=== PATIENT | female | born 1955 | race Caucasian/White ===

== ENCOUNTER → 2024-01-02 10:47 | Outpatient (CLI) | payer MEDICARE, SELFPAY ==
[2024-01-02 12:39] LABS: BUN Creatinine Ratio 18.1 (6-22); Blood Urea Nitrogen 17 mg/dL (7-17); Calcium 8.6 mg/dL (8.4-10.2); Carbon Dioxide 31 mmol/L (22-32); Chloride 103 mmol/L (98-107); Cholesterol 185 mg/dL (140-199); Estimated Glomerular Filt Rate > 60 mL/min (>60); Glucose 86 mg/dL (80-110); HDL Cholesterol 90 mg/dL (40-60); LDL Cholesterol Calculated 71 mg/dL (<100); Potassium 4.2 mmol/L (3.4-5.1); Sodium 137 mmol/L (137-145); Triglycerides 119 mg/dL (35-150)
[2024-01-02 12:53] LABS: HEMOLYSIS 52 (0-50)
== END ==
PROVIDERS: PCP Family Medicine; Referring Provider Family Medicine; Visit Provider Family Medicine
DX: R74.8 Abnormal levels of other serum enzymes (principal)
CPT/HCPCS: 36415; 80048; 80061

== ENCOUNTER → 2024-01-03 12:51 | Outpatient (CLI) | payer MEDICARE, SELFPAY ==
--- NOTE | 2024-01-03 12:53 | DI.RAD.S_ITS ---
Bone Density Report Name: TY MARTI Age: 68 Sex: Female Ethnicity: White Date of : 1955 Indication: postmenopausal; screening for osteoporosis; Referring Provider: HELLEN MCNULTY Study: Bone densitometry was performed. Exam Date: January 03, 2024 Accession number: [id number] Bone Density: Region BMD T-score Z-score Classification AP Spine(L1-L4) 0.815 -2.1 0.0 Osteopenia Femoral Neck (Left) 0.553 -2.7 -0.9 Osteoporosis Total Hip (Left) 0.639 -2.5 -1.0 Osteoporosis Femoral Neck (Right) 0.599 -2.3 -0.5 Osteopenia Total Hip (Right) 0.659 -2.3 -0.8 Osteopenia Total Hip Mean 0.649 -2.4 -0.9 Osteopenia World Health Organization criteria for BMD impression classify patients as: Normal (T-score at or above -1.0), Osteopenia (T-score between -1.0 and -2.5), or Osteoporosis (T-score at or below -2.5). 10-year Fracture Risk: FRAX not reported because: Some T-score for Spine Total or Hip Total or Femoral Neck at or below -2.5 Impression: The patient has osteoporosis, based on the Left Femoral Neck T-score. Discussion: INCREASED RISK OF FRACTURE. BONE DENSITY IS UNDESIRABLY LOW AT ONE OR MORE SKELETAL SITES, CONSISTENT WITH POSTMENOPAUSAL OSTEOPOROSIS. This patient's lowest T-score meets the World Health Organization's (WHO) criteria for osteoporosis at one or more sites (T-score -2.5 or below). In untreated patients, the risk of osteoporotic fracture increases approximately two-fold for each 1.0 SD decrease in T-score. Low bone density is not the only risk factor for fracture; also consider factors such as patient's age, frailty or poor health, risk of falling, risk of injury, previous osteoporotic fracture, family history of osteoporosis, cigarette smoking, low body weight, etc. Not everyone with low bone mineral density has osteoporosis; osteomalacia and other metabolic bone disorders should also be considered. Patients who have osteoporosis should be evaluated for specific diseases and conditions (secondary causes) that may cause or contribute to bone loss. The [place] [employer]ocrinologists (AACE) and National Osteoporosis Foundation (NOF) recommend pharmacologic intervention for all postmenopausal women whose T-score is in this range. The patient should follow a healthful lifestyle (good nutrition with adequate calcium and vitamin D, and appropriate weight-bearing exercise). Follow-Up: Consider a repeat BMD and Vertebral Fracture Assessment (VFA) exam in 2 years or sooner if medically necessary, to reassess this patient's status. Reported by: CARMEN SEALS M.D. on 01/03/2024 1:22:00 PM.
== END ==
LOC: RAD 12:52
PROVIDERS: PCP Family Medicine; Referring Provider Family Medicine; Visit Provider Family Medicine
DX: M81.0 Age-related osteoporosis without current pathological fracture (principal)
CPT/HCPCS: 77080

== ENCOUNTER → 2024-01-04 12:59 | Outpatient (CLI) | payer MEDICARE, SELFPAY ==
--- NOTE | 2024-01-04 13:00 | DI.MG.S_ITS ---
BILATERAL DIGITAL SCREENING MAMMOGRAM 3D/2D WITH CAD: 01/04/2024 No prior exams were available for comparison. Both breasts are heterogeneously dense, which may obscure small masses (category c / 51-75% glandular tissue). Current study was also evaluated with a Computer Aided Detection (CAD) system. There are benign vascular calcifications in both breasts. No significant masses, calcifications, or other findings are seen in either breast. IMPRESSION: BENIGN There is no mammographic evidence of malignancy. A 1 year screening mammogram is recommended. Based on the Tyrer Cuzick model (a risk assessment model) the patient's lifetime risk is 8.6% and her 10 year risk is 5.5%. According to the ACR, ACS, and NCCN guidelines, an annual breast MRI exam along with mammogram is recommended if the patient's lifetime risk is 20% or greater. This exam was interpreted at Station ID: [id number]. NOTE: For mammograms, a report in lay terms will be sent to the patient. Approximately 15% of breast malignancies will not be visualized mammographically. In the management of a palpable breast mass, a negative mammogram must not discourage biopsy of a clinically suspicious lesion. Electronically Signed By: Cecy yee/bonita:01/13/2024 15:14:59 letter sent: Normal Exam ACR BI-RADS Category 2: Benign Finding(s) 3342F
== END ==
PROVIDERS: PCP Family Medicine; Referring Provider Family Medicine; Visit Provider Family Medicine
DX: Z12.31 Encounter for screening mammogram for malignant neoplasm of breast (principal); R92.333 Mammographic heterogeneous density, bilateral breasts
CPT/HCPCS: 77063; 77067

== ENCOUNTER 2024-06-30 08:01 | Day surgery (SDC) | payer MEDICARE, SELFPAY ==
[2024-06-25 15:00] VITALS: BMI 23.3
--- NOTE | 2024-06-30 | PATH_ITS ---
[facility] Accession Number: [id number] No. of containers..02 Tissue . 01 Material submitted: . PART A: exocervix - EXOCERVIX, LONG SUTURE AT 12 PART B: endocervix - ENDOCERVIX, SHORT SUTURE AT 6 . 01 Diagnosis: A. 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 All resection margins are negative for high-grade dysplasia. No invasive malignancy identified. . B. 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 All other margins are negative. No invasive malignancy identified. MRV 07/03/2024 1450 Local . 01 Comment: B.This part of the case has also been reviewed by Dr. Lurdes Draper, who concurs with the diagnosis. . 01 Electronically signed: . Sharon Dickson MD, Pathologist NPI- [id number] . 01 Gross description: . A. Received in formalin with two patient identifiers and ectocervix long suture at 12, is an oriented, circular fragment of cervix with a suture designating 12 o'clock per the requisition (1.4 cm from 12-6, 1.5 cm from 3-9, and 0.5 cm thick) with del real finely granular ectocervix and a slit-like os, 0.3 cm in diameter. The endocervical margin is inked orange while the remaining stromal margin is inked blue. The specimen is radially sectioned and submitted entirely as follows: A1: 12-3. A2: 3-6. A3: 6-9. A4: -12. B. Received in formalin with two patient identifiers and endocervix short at 6, is an incomplete circular fragment of cervix with a suture designating 6 o'clock per the requisition and the os incomplete at 9 o'clock. 1.5 cm from 12-6, 1.2 cm from 3-9, and 0.6 cm thick. The concave surface is inked black while the convex surface is inked orange. The specimen is sectioned and submitted entirely as follows: B1: 12-3. B2: 3-6, B3: 6-9. B4: -12. See diagram. ([id number]) /MRV 07/01/2024 1741 Local . 01 Pathologist provided ICD-10: N87.1 . 01 CPT . 004271, [id number] Specimen Comment: A courtesy copy of this report has been sent to [phone] Performed at: [address] [facility] [address], [place], [place] [id number] MD Torito Stapleton MD Phone: [phone]
--- NOTE | 2024-06-30 08:08 | PM.GYNHP.1 ---
History of Present Illness History of Present Illness Reason for admission: other (Cervical dysplasia) Narrative: Faye Ling is a 68 year old 2 para 2 who presents for LEEP cone biopsy of the cervix. Patient had a Pap smear which showed ASCUS with positive high-risk HPV. Colposcopy performed by her PCP. No aceto-white areas or green filter changes. ECC was performed. Colposcopic biopsy of the endocervical canal showed dysplasia that was worrisome for high-grade dysplasia but not definitive. She presents today for a LEEP with endocervical component. [facility] Medical History Colon polyp Osteoporosis GERD (gastroesophageal reflux disease) Hyperlipidemia Atrial fibrillation Fibromyalgia Encounter for colonoscopy due to history of adenomatous colonic polyps Social History household members: spouse Smoking Status: Never smoker alcohol intake: never Meds Home Medications and Allergies Home Medications Medication Instructions Recorded Confirmed Type omeprazole 20 mg capsule,delayed 20 mg PO DAILY #90 caps 11/22/23 06/30/24 Rx release metoprolol succinate 25 mg 25 mg PO DAILY #90 tabs 01/07/24 06/30/24 Rx tablet,extended release 24 hr alendronate 70 mg tablet (Fosamax) 70 mg PO QWEEK #25 tabs 01/27/24 06/30/24 Rx valacyclovir 1 gram tablet 1,000 mg PO DAILY #10 tabs 03/26/24 06/15/24 Rx duloxetine 30 mg capsule,delayed 30 mg PO DAILY #90 caps 04/09/24 06/30/24 Rx release duloxetine 60 mg capsule,delayed 60 mg PO ONCE PM #90 caps 04/09/24 06/15/24 Rx release gabapentin 600 mg tablet 600 mg PO 3XD #360 tabs 06/10/24 06/30/24 Rx atorvastatin 20 mg tablet 20 mg PO DAILY #90 tabs 06/29/24 06/30/24 Rx Allergies Allergy/AdvReac Type Severity Reaction Status Date / Time Sulfa (Sulfonamide Allergy Mild Rash Verified 06/30/24 08:21 Antibiotics) Exam Narrative Exam Narrative: HEENT: No thyromegaly, no anterior cervical or supraclavicular lymphadenopathy. Lungs:Clear to auscultation bilaterally, no wheezes. Cardiovascular: Regular rate and rhythm, no murmurs, rubs, or gallops. Abdomen: No scars. No hepatosplenomegaly. No masses palpable. External genitalia: Atrophic Vagina: Atrophic Cervix: Atrophic Bimanual exam: A 5 week size anteverted uterus. No adnexal masses or tenderness. Assessment & Plan Assessment & Plan narrative: Assessment: 68-year-old 2 para 2 with dysplasia of the endocervical canal, can not rule out high-grade Plan: Colposcopy of the cervix with LEEP cone biopsy of the cervix including the endocervical canal The risks, benefits, and alternatives to the procedure were explained to the patient. The risks including bleeding and infection. She understands these risks and agrees to proceed. A full par Q was held and consent form was signed. Time-Based Coding :: [TOTAL MINUTES] spent with patient and on the chart (including review of chart, obtaining history, exam, reviewing outside data, placing orders, documenting exam and treatment plan, and counseling patient) on [DATE].
[2024-06-30 08:25] VITALS: BP 137/73; PULSE 60; RESP 16; TEMP 36.9; O2SAT 99; BMI 23.1
[2024-06-30] MEDS: LACTATED RINGERS 1,000 ML 42 ML IV (08:29)
--- NOTE | 2024-06-30 08:55 | PM.PREOP ---
Pre-operative Note Interval Note History & Physical reviewed/Exam performed by Physician: Yes Changes to H&P: No H&P completed within 30 days and has changed as indicated here:: 06/30/24
--- NOTE | 2024-06-30 09:46 | SUR.OPER ---
Lithotomy on padded OR bed, head on pillow, arms secured on padded arm boards at <90 degrees abduction. Legs secured in padded yellow fins stirrups.
[2024-06-30 10:11] VITALS: BP 111/64; PULSE 72; RESP 12; TEMP 36.6; O2SAT 100
[2024-06-30] MEDS: POTASSIUM IODIDE/IODINE 473 ML SOLUTION 10 ML TOP (10:14)
[2024-06-30] MEDS: ACETIC ACID 500 ML IRRIG 20 ML TOP (10:15)
[2024-06-30 10:16] VITALS: BP 130/73; PULSE 70; RESP 14; O2SAT 97
--- NOTE | 2024-06-30 10:18 | P.OP_ITS ---
Operative Date/Time/Diagnoses Date of procedure: 06/30/24 Time of procedure: 10:18 Pre-op diagnosis: Ascus on Pap, positive high-risk HPV Endocervical curettage at time of colposcopy with dysplasia, can not rule out high-grade Post-op diagnosis: same Procedure & Clinicians Procedure: Procedures Operation Date: 06/30/24 09:15 Actual Procedure Side Surgeon p COLPOSCOPY, LEEP, CONE BIOPSY OF THE CERVIX Sara Rodriguez MD Indications: 68-year-old 2 para 2 with ASCUS on Pap with positive high-risk HPV. Colposcopy done by primary care provider and there were no dysplastic changes on the ectocervix. Endocervical curettage showed dysplasia, can not rule out high- grade. Patient here for a LEEP cone biopsy of the cervix with endocervical component. Surgeon: Sara Rodriguez Anesthesia Type: General (LMA) Operative Notes Findings: Lugol's light area of the endocervical canal Closure Type: not applicable Specimen(s): other (Ectocervix with long suture at 12 o'clock, endocervix with short suture at 6 o'clock.) Estimated blood loss (mL): 2 Blood products transfused: none Procedure in detail: After informed consent was obtained, the patient was taken to the operating room where she was placed in the dorsal supine position. After adequate LMA general anesthesia was achieved, she was placed in the dorsal lithotomy position, and prepped and draped in the usual sterile fashion. A plastic coated bivalve speculum was placed into the vagina with suction attached. A single-tooth tenaculum was placed on the anterior lip of the cervix. Lugol's was placed on the cervix and there were Lugol's light area in the endocervical canal. Using settings of 80 cut and 60 cautery, and the 1.5 cm loop, the LEEP was completed of the ectocervix. A suture was placed at 12:00 p.m.. Using the smaller 1 cm loop, an endocervical component was obtained. A suture was placed at 6:00 a.m.. The ball cautery was used to extensively cauterize both the endocervical canal and the ectocervix. Hemostasis was achieved. The single-tooth tenaculum was removed from the anterior lip of the cervix. The bivalve speculum was removed from the vagina. Sponge, lap, and instrument counts were correct x2. The patient tolerated the procedure well, and was taken to PACU in stable condition. All personnel were and 95 masks. There were 3 sources of suction. The first source was again shower suction placed back in the vagina. The second source was attached to the plastic coated bivalve speculum. The third source was attached to the Bovie to which the loops were placed. Complications: none Post-operative Condition: stable Disposition: PACU Plan for aftercare: Home after recovery
[2024-06-30 10:21] VITALS: BP 135/77; PULSE 72; RESP 12; O2SAT 99
[2024-06-30 10:26] VITALS: BP 144/79; PULSE 68; RESP 12; TEMP 36.6; O2SAT 99
[2024-06-30] MEDS: ACETAMINOPHEN 325 MG TABLET 975 MG PO (10:29)
[2024-06-30 10:36] VITALS: BP 149/74; PULSE 71; RESP 12; O2SAT 99
== END 2024-06-30 10:55 | disposition home or self-care (01) ==
PROVIDERS: PCP Family Medicine; Referring Provider Obstetrics & Gynecology; Visit Provider Obstetrics & Gynecology
PROC: 0UBC7ZZ Excision of Cervix, Via Natural or Artificial Opening (ICD-10-PCS; CPT 57522; principal; 2024-06-30 09:15)
DX: N87.1 Moderate cervical dysplasia (principal); R87.810 Cervical high risk human papillomavirus (HPV) DNA test positive
CPT/HCPCS: 57522; J1100; J1885; J2250; J2405; J2704; J3010

== ENCOUNTER → 2025-01-19 14:40 | Outpatient (CLI) | payer MEDICARE, SELFPAY ==
--- NOTE | 2025-01-19 14:42 | DI.MG.S_ITS ---
MM screening mammo BI: 01/19/2025. BI-RADS: 1 CLINICAL: 69-year old female for bilateral screening mammogram. Tyrer-Cuzick lifetime risk of 5.3%. No personal or first-degree family history of breast cancer. Current reported family history of breast cancer: maternal aunt. The patient had a prior left breast biopsy. PRIOR EXAMS 01/04/2024. MAMMOGRAPHY TECHNIQUE: 2D and 3D (tomosynthesis) digital mammographic views obtained, with additional images as needed for full coverage. Current study was also evaluated with a Computer Aided Detection (CAD) system. DENSITY C. The breasts are heterogeneously dense, which may obscure small masses. MAMMOGRAPHY FINDINGS Bilateral: No suspicious mass, asymmetry, microcalcification, or other abnormality seen. IMPRESSION: * No evidence of malignancy. RECOMMENDATIONS Bilateral * Annual screening mammography. OVERALL ASSESSMENT CATEGORY BI-RADS-1: Negative. The [employer] recommends annual screening mammography beginning at age 40 for women with average risk of breast cancer. ELECTRONICALLY SIGNED: Arely Iglesias M.D. on 01/20/2025 at 04:36:42 PM PT Interpreting Station ID: [id number]
== END ==
PROVIDERS: PCP Family Medicine; Referring Provider Family Medicine; Visit Provider Family Medicine
DX: Z12.31 Encounter for screening mammogram for malignant neoplasm of breast (principal); Z80.3 Family history of malignant neoplasm of breast; R92.333 Mammographic heterogeneous density, bilateral breasts
CPT/HCPCS: 77063; 77067